=== PATIENT | female | born 1960 | race Caucasian/White ===

== ENCOUNTER → 2023-10-31 12:44 | Outpatient (AMB) | payer MEDICARE, SELFPAY ==
--- NOTE | 2023-10-31 13:37 | MHC.OFFWIV ---
Intake Vital Signs 10/31/23 13:39 Height 4 ft 11 in Weight 167 lb 2 oz BMI 33.8 BP 124/78 Blood Pressure Location Lt brachial Position Sitting Pulse 63 Pulse Source Pulse Oximeter Temp 98.1 F Temp Source Oral Pulse Oximetry (%) 98 Oxygen Delivery Method Room Air Oxygen Flow Rate 98.1 Intake Visit Reasons: Sinus Infection, Cold for a week Intake Note: Patient is here with symptoms of sinus infection, cold since last Monday, shooting pain in right ear, head congestion, dizziness. Patient Tobacco Use Status: Never used Tobacco Allergies codeine Adverse Reaction (Mild, Verified 10/31/23 14:09) passes out cillins Allergy (Mild, Uncoded 10/31/23 13:43) passes out clindimycin Adverse Reaction (Intermediate, Uncoded 10/31/23 13:43) c difficile Do you need a note to return to daycare/school/sports/work: No HPI HPI Comments History of Present Illness Details sick since last Mon flu like sx these sx have cleared now r ear has shooting pain, feels dizzy, head congestion and sinus pain and pressure this has happened to her before; cannot recall last time she was tx for sinus infection using apap cold and flu w/ short lived relief using nasal saline PFSH Social History Patient Tobacco Use Status: Never used Tobacco Review of Systems Const All systems reviewed & are unremarkable except as noted in HPI and below Physical Exam Vital Signs: Last Vital Signs Temp 98.1 F 10/31/23 13:39 Pulse 63 10/31/23 13:39 BP 124/78 10/31/23 13:39 Pulse Ox 98 10/31/23 13:39 Oxygen Delivery Method Room Air 10/31/23 13:39 Oxygen Flow Rate 98.1 10/31/23 13:39 BMI result Body Mass Index 33.8 Const Other: awake alert NAD TM intact w/ effusions bilat Nares patent, turbinates pale and edematous, max sinus tenderness bilat pharynx wnl RRR LS CTAB Assessment & Plan Assessment & Plan (1) Sinusitis: Code(s): J32.9 - Chronic sinusitis, unspecified Qualifiers: Sinusitis location: maxillary Chronicity: acute Recurrence: recurrent Qualified Code(s): J01.01 - Acute recurrent maxillary sinusitis Plan: . Plan Patient is allergic to all penicillins. She reports that azithromycin is not effective for her. Therefore we will treat her with doxycycline. She not use any type of nasal spray other than saline or Flonase. Stop your [id number] decongestant within 2 days. If pain relief as needed so came to take Tylenol. Educated on reasons to return to office or seek further evaluation treatment Medications: New doxycycline hyclate 100 mg PO BID 7 days 14 caps 0RF Coding Level of Care Code Est Pt Level 3 (14367) Diagnoses Acute recurrent maxillary sinusitis J01.01 Sinusitis location: maxillary Chronicity: acute Recurrence: recurrent
[2023-10-31 13:39] VITALS: BP 124/78; PULSE 63; TEMP 36.7; O2SAT 98; BMI 33.8
== END ==
PROVIDERS: PCP Family Medicine; Visit Provider Nurse Practitioner Family
DX: J01.01 Acute recurrent maxillary sinusitis (principal)
CPT/HCPCS: 99213